=== PATIENT | male | born 1990 | race African-American/Black ===

== ENCOUNTER 2025-05-13 14:25 | Emergency (ER) | payer MEDICAID ==
[~2025-05-13] VITALS: Ht 172.7 cm; Wt 84.0 kg
[~2025-05-13 14:25] MED LIST: ALBU2.5V13
[2025-05-13 14:26] VITALS: O2SAT 96
[2025-05-13] MEDS: ACETAMINOPHEN 325MG TABLET PO ONE (15:01)
[2025-05-13 16:52] VITALS: BP 132/80; PULSE 91; RESP 16; TEMP 37.1; O2SAT 97
== END 2025-05-13 16:52 | disposition home or self-care (01) ==
LOC: ER 14:25
DX: M79.642 Pain in left hand (principal)
CPT/HCPCS: 99284; 29105; 73060; 73070; 73090; 73100; 73120; A6449